=== PATIENT | male | born 1975 | race Caucasian/White ===

== ENCOUNTER → 2020-07-17 08:42 | Outpatient (BNVA) | payer SELFPAY | PROVIDERS: Family Provider Nurse Practitioner Family; PCP Nurse Practitioner Family; Visit Provider Nurse Practitioner Family | DX: E78.5 Hyperlipidemia, unspecified (principal); I10 Essential (primary) hypertension | CPT/HCPCS: 80053; 80061 ==

== ENCOUNTER → 2020-07-25 10:49 | Outpatient (BNVA) | payer SELFPAY | PROVIDERS: Family Provider Nurse Practitioner Family; PCP Nurse Practitioner Family; Visit Provider Nurse Practitioner Family | DX: N20.0 Calculus of kidney (principal) | CPT/HCPCS: 81000; 82365; 88300 ==

== ENCOUNTER → 2021-07-10 09:09 | Outpatient (BNVA) | payer OTHER, SELFPAY | PROVIDERS: Family Provider Nurse Practitioner Family; PCP Nurse Practitioner Family; Visit Provider Nurse Practitioner Family | DX: I10 Essential (primary) hypertension (principal); E78.5 Hyperlipidemia, unspecified; E66.01 Morbid (severe) obesity due to excess calories | CPT/HCPCS: 80053; 80061; 84443 ==

== ENCOUNTER 2021-10-28 09:13 | Outpatient (CLI) | payer OTHER, SELFPAY ==
--- NOTE | 2021-10-28 09:31 | MM_ITS ---
WS: [id number] DI[facility]NOSTIC BILATERAL DIGITAL BREAST TOMOSYNTHESIS MAMMOGRAPHY WITH CAD RIGHT breast ultrasound, limited. HISTORY: 38-year-old male with RIGHT breast lump. COMPARISON: None available. TECHNIQUE: Bilateral craniocaudad, mediolateral oblique, and mediolateral views are submitted with to mosanabel and STEW. Computer aided detection utilized. Breast composition: The breasts are almost entirely fatty. Slightly spiculated density posterior to t he RIGHT nipple measures 2.1 x 1.3 cm. Typical appearance for gynecomastia. Ultrasound will be perfor med. There are a few skin calcifications scattered over each breast. RIGHT breast ultrasound, limited. Hypoechoic area with mild dendritic extensions and increased vascularity posterior to the RIGHT nippl e measures 2.5 x 3.6 x 0.8 cm. This corresponds to an area of gynecomastia seen on the mammogram. The LEFT breast is negative. MM/[id number] IMPRESSION: BI-RADS: 2-Benign FOLLOW UP: See Report RIGHT breast gynecomastia. This corresponds to the palpable abnormality within the RIGHT breast. No further workup necessary unless there is significant enlar gement and increasing pain.
== END 2021-10-28 09:14 | disposition home or self-care (01) ==
PROVIDERS: Family Provider Nurse Practitioner Family; PCP Nurse Practitioner Family; Visit Provider Nurse Practitioner Family
DX: N63.10 Unspecified lump in the right breast, unspecified quadrant (principal); N62 Hypertrophy of breast
CPT/HCPCS: 76642; 77062